=== PATIENT | female | born 1945 | race Caucasian/White ===

== ENCOUNTER 2021-01-05 12:05 | Outpatient (REF) | payer MEDICARE, SELFPAY | END 2021-01-05 12:06 | disposition home or self-care (01) | LOC: HO.LAB 12:05 | PROVIDERS: Visit Provider Internal Medicine | DX: Z20.822 Contact with and (suspected) exposure to COVID-19 (principal) | CPT/HCPCS: 36415; C9803; U0003; U0005 ==

== ENCOUNTER 2021-11-03 08:17 | Outpatient (REF) | payer MEDICARE, SELFPAY ==
[2021-11-03 09:34] LABS: COVID-19 Test Negative (Negative); IDNOW Serial# 16C4AD1C
== END 2021-11-03 08:18 | disposition home or self-care (01) ==
LOC: HO.LAB 08:17
PROVIDERS: Visit Provider Internal Medicine
DX: Z20.822 Contact with and (suspected) exposure to COVID-19 (principal)
CPT/HCPCS: 87635; C9803